=== PATIENT | female | born 1985 | race Caucasian/White ===

== ENCOUNTER 2017-09-10 10:43 | Inpatient (IN) | payer BC ==
[~2017-09-10] VITALS: Ht 160 cm; Wt 62.7 kg
[~2017-09-10 10:43] MED LIST: MOTRIN 600600 MG/TAB PO; NORCO 325 MG-51 TAB PO; PERCOCET 325 MG1 TA2 PO; ZOFRAN ODT4 MG PO; [UNRECOGNIZED DRUG - OTHER] PO
[2017-10-22] VITALS (48 sets, daily range): BP systolic 80–134; BP diastolic 53–87; PULSE 59–91; TEMP 98.1–98.4
[2017-10-22] MEDS ORDERED: CALCIUM CARBON650 M2 (07:34)
[2017-10-22] MEDS ORDERED: PRENATAL (07:34)
[2017-10-22 08:30] LABS: BASO % 0.3 % (0.0-2.0); EOS # 0.2 (0.0-0.7); EOS % 3.6 % (0-4.0); GRAN # 3.9 (1.4-6.5); GRAN % 65.6 % (42.2-75.2); HEMATOCRIT 39.4 % (37.0-47.0); HEMOGLOBIN 13.7 g/dl (12.5-16.0); LYMPH # 1.4 (1.2-3.4); LYMPH % 23.4 % (20.0-51.0); MEAN CELL VOLUME 91 fl (80.0-100.0); MEAN CORPUSCULAR HEMOGLOBIN 32 pg (27.0-31.0); MEAN CORPUSCULAR HGB CONC 35 g/dl (33.0-37.0); MEAN PLATELET VOLUME 11.3 fl (7.4-10.4); MONO # 0.4 (0.1-0.6); MONO % 6.6 % (1.7-9.3); PLATELET COUNT 143 K/mm3 (130-400); RED BLOOD COUNT 4.32 M/mm3 (4.10-5.30); WHITE BLOOD COUNT 5.9 K/mm3 (4.8-10.8)
[2017-10-23 02:40] VITALS: BP 110/79; PULSE 73; TEMP 97.6
[2017-10-23] MEDS ORDERED: IBU600 MG PO (07:26)
[2017-10-23] MEDS ORDERED: PERCOCET 325 MG1 TA2 PO (07:26)
[2017-10-23 07:50] VITALS: BP 116/79; PULSE 77; TEMP 97.5
[2017-10-23 12:30] VITALS: BP 121/75; PULSE 73; TEMP 98
[2017-10-23 17:29] VITALS: BP 115/69; PULSE 84; TEMP 98.3
[2017-10-23 21:05] VITALS: BP 110/81; PULSE 76; TEMP 97.6
[2017-10-24 08:25] VITALS: BP 123/82; PULSE 85; TEMP 97.9
== END 2017-10-24 14:30 | disposition home or self-care (01) | DRG 775 ==
LOC: LDR 10-22 06:39 → OB 10-22 07:09 → LDR 10-22 07:15 → OB 10-22 22:05 → LDR 10-23 10:43 → OB 10-24 14:30
PROVIDERS: Obstetrics & Gynecology
PROC: 10E0XZZ Delivery of Products of Conception, External Approach (ICD-10-PCS; principal; 2017-10-22)
PROC: 3E033VJ Introduction of Other Hormone into Peripheral Vein, Percutaneous Approach (ICD-10-PCS; 2017-10-22)
DX: O75.89 Other specified complications of labor and delivery (principal); O36.0130 Maternal care for anti-D [Rh] antibodies, third trimester, not applicable or unspecified; O69.81X0 Labor and delivery complicated by cord around neck, without compression, not applicable or unspecified; Z3A.39 39 weeks gestation of pregnancy; Z37.0 Single live birth
CPT/HCPCS: J2590; J2791; J2795; J7120

== ENCOUNTER → 2020-12-21 | Outpatient (CLI) | payer BC ==
[~2020-12-21] MED LIST changes: +CALCIUM CARBON650 M2; +IBU600 MG PO; +PRENATAL
== END ==
LOC: MC.RAD 10:51
DX: Z12.31 Encounter for screening mammogram for malignant neoplasm of breast (principal)

== ENCOUNTER → 2023-03-20 | Outpatient (CLI) | payer BC | LOC: MC.RAD 15:54 | DX: Z12.31 Encounter for screening mammogram for malignant neoplasm of breast (principal); R92.8 Other abnormal and inconclusive findings on diagnostic imaging of breast ==

== ENCOUNTER → 2023-03-21 | Outpatient (CLI) | payer BC | LOC: MC.RAD 13:00 | DX: N64.89 Other specified disorders of breast (principal); R92.8 Other abnormal and inconclusive findings on diagnostic imaging of breast ==

== ENCOUNTER → 2024-05-14 | Outpatient (CLI) | payer BC | LOC: MC.RAD 13:17 | DX: Z12.31 Encounter for screening mammogram for malignant neoplasm of breast (principal) ==